=== PATIENT | female | born 1965 | race Caucasian/White ===

== ENCOUNTER 2019-04-16 18:43 | Inpatient (IN) | payer BC, OTHER ==
[2019-04-16] MEDS ORDERED: Ondansetron PF 4 MG/2 ML Vial ONE (19:12)
[2019-04-16 19:31] LABS: #Lymphocytes 1.2 thou/uL (1.20-3.40); #Monocytes 0.7 thou/uL (0.11-0.59); #Neutrophils 8.8 thou/uL (1.40-6.50); %Basophils 0.5 % (0.0-1.0); %Eosinophils 0.1 % (0.0-10.0); %Lymphocytes 11.4 % (21.0-51.0); %Monocytes 6.7 % (0.0-10.0); %Neutrophils 81.2 % (42.0-75.0); Hemoglobin 14.2 g/dL (12.0-16.0); Mean Corpuscular HGB CONC 34.3 g/dL (32.0-36.0); Mean Corpuscular Hemoglobin 31.3 pg (27.0-31.0); Mean Corpuscular Volume 91.2 fL (78.0-98.0); Mean Platelet Volume 6.7 fL (7.4-10.4); Platelet Count 177 thou/uL (130-400); RBC Distribution Width 14.3 % (11.5-14.5); Red Blood Cell (RBC) Count 4.54 mill/uL (4.20-5.40); White Blood Cell (WBC) Count 10.8 thou/uL (4.8-10.8)
[2019-04-16 19:39] LABS: INR-International Normal Ratio 1.1; Prothrombin Time 14.1 SEC (12.0-14.7)
[2019-04-16] MEDS ORDERED: Lorazepam 2 MG/ML VIAL ONE (19:39)
[2019-04-16 19:40] LABS: PTT 22.2 SEC (22.9-36.1)
[2019-04-16 19:50] LABS: ALT (SGPT) 78 U/L (8-55); AST (SGOT) 125 U/L (5-34); Albumin 4.2 g/dL (3.5-5.0); Alkaline Phosphatase 159 U/L (40-150); Anion Gap 25 mmol/L (10-20); BUN (Urea Nitrogen) 8 mg/dL (9.8-20.1); Bilirubin, Total 0.4 mg/dL (0.2-1.2); Calc. Creatinine Clearance 0 mL/min (70-130); Calcium 8.5 mg/dL (7.8-10.44); Carbon Dioxide 14 mmol/L (22-29); Chloride 103 mmol/L (98-107); Estimated GFR-MDRD 88; Globulin 3.3 g/dL (2.4-3.5); Lipase 21 U/L (8-78); Potassium 4.1 mmol/L (3.5-5.1); Protein, Total 7.5 g/dL (6.0-8.3); Sodium 138 mmol/L (136-145)
[2019-04-16 19:56] LABS: Glucose 54 mg/dL (70-105)
[2019-04-16] MEDS ORDERED: Dextrose 50% Abboject 50 ML SYRINGE ONE (20:06)
[2019-04-16 20:21] LABS: Bilirubin Negative (Negative); Blood, Urine Negative (Negative); Clarity Clear (Clear); Glucose, Urine (Dipstick) Normal (Negative); Leukocyte Negative Leu/uL (Negative); Nitrite Negative (Negative); Protein, Urine (Dipstick) 20 mg/dL (Neg-Trace); Urobilinogen Normal mg/dL (Less than 2)
[2019-04-16 20:31] LABS: Amphetamine Not Detected (NotDetected); Barbiturates Screen Detected (NotDetected); Benzodiazepine Screen Not Detected (NotDetected); Cocaine Metabolite Screen Not Detected (NotDetected); Medtox Control Line Valid? VALID (VALID); Medtox Reader # READER 4; Methadone Not Detected (NotDetected); Methamphetamine Not Detected (NotDetected); Opiate Screen Not Detected (NotDetected); Oxycodone Screen Not Detected (NotDetected); Phencyclidine (PCP) Not Detected (NotDetected); THC/Cannabinoid Screen Not Detected (NotDetected); Tricyclic Screen Not Detected (NotDetected)
[2019-04-16] MEDS ORDERED: Sodium Chloride 0.9% 1,000 ML IV SCH (20:45)
[2019-04-16] MEDS ORDERED: Lorazepam 2 MG/ML VIAL SLOW IVP PRN (20:46)
[2019-04-16] MEDS ORDERED: Ondansetron PF 4 MG/2 ML Vial IVP PRN (22:07)
[2019-04-16] MEDS ORDERED: Ondansetron ODT 4 MG TAB SL PRN (22:07)
[2019-04-16 22:33] VITALS: BMI 33.1
[2019-04-16] MEDS: Famotidine/PF 20 mg/2ml Vial SLOW IVP SCH (22:40)
[2019-04-16] MEDS: Dextrose 5 % And 0.9 % NaCl 1,000 ML IV SCH (22:42)
[2019-04-16] MEDS ORDERED: Acetaminophen 325 MG TAB PO PRN (23:18)
[2019-04-16] MEDS: levETIRAcetam In NaCl (Iso-Os) 1,000 MG in Premix Bag 1 BAG IVPB SCH (23:30)
--- NOTE | 2019-04-16 23:46 | PDOC.EVN ---
Event Note - Event Note Event Note: H&P dictated [id number]
[2019-04-17] MEDS ORDERED: Diazepam 5 MG TAB PO SCH (00:15)
[2019-04-17] MEDS ORDERED: Thiamine HCl 200 MG/2 ML VIAL IM SCH (00:15)
[2019-04-17] MEDS: Diazepam 5 MG TAB PO PRN ×3 (04:19→16:34)
--- NOTE | 2019-04-17 04:36 | HP ---
CHIEF COMPLAINT: Seizures. HISTORY OF PRESENT ILLNESS: Ms. Narvaez is a 54-year-old female with past medical history of seizures, asthma, and alcohol abuse, presented to the emergency room with chief complaint of seizures. The patient reports 4 episodes today. She reported intermittent jerking episodes for couple of weeks. She also reports that she has been taking her seizure medication including Keppra. She reports drinking/alcohol withdrawal since last few weeks. She said that her last drink was an hour ago. Workup in the emergency room, the patient was found to be hypoglycemic with a glucose of 54. She felt that she has not been eating or drinking lately. The patient appeared to be dehydrated. The patient is being admitted to the hospital for further management. PAST MEDICAL HISTORY: 1. Seizures. 2. Posttraumatic pain disorder. 3. Asthma. 4. Alcohol abuse. PAST SURGICAL HISTORY: 1. Bilateral knee surgery. 2. Bilateral shoulder surgery. 3. Endometrial ablation. 4. Appendectomy. 5. Cholecystectomy. SOCIAL HISTORY: She drinks every day, more than 10 drinks per day. She stated that she drinks a lot, at least 10 today. She has no history of cigarette smoking. ALLERGIES: PENICILLIN. HOME MEDICATIONS: Please see home medications reconciliation form for updated medications. FAMILY HISTORY: Reviewed and noncontributory. REVIEW OF SYSTEMS: Review of 14-systems negative today except what was mentioned in the history of present illness. PHYSICAL EXAMINATION: GENERAL: The patient is awake, alert, anxious, and restless. VITAL SIGNS: Blood pressure is 113/75, pulse is 99, temperature 98.2, pulse oximetry 100% on room air. HEAD AND NECK: Normocephalic and atraumatic. Neck is supple. CHEST: Fair. Bilateral air entry. HEART: S1 and S2 regular, tachycardic. ABDOMEN: Soft, mild diffuse tenderness, bowel sounds present. NEUROLOGIC: The patient is awake, alert, and oriented x3. PSYCHIATRIC: Anxious and restless. EXTREMITIES: No clubbing, no cyanosis. LABORATORY DATA: As mentioned above in the history of present illness. ASSESSMENT: 1. Alcohol withdrawal. 2. Dehydration. 3. Seizures. PLAN: 1. Admit. 2. IV fluid hydration. 3. Benzodiazepine as needed. 4. We will start the patient on IV Keppra, which she takes at home. 5. Seizure precautions. 6. Reconcile home medications. 7. Deep venous thrombosis prophylaxis, early ambulation/SCD. EXPECTED LENGTH OF STAY: At least one midnight, if the patient is stable. Job ID: [id number]
[2019-04-17] MEDS: Dextrose 5 % And 0.9 % NaCl 1,000 ML IV SCH ×4 (06:18→20:56)
[2019-04-17 06:28] LABS: Syphilis Antibody Nonreactive (Nonreactive); Syphilis Antibody Index 0.09 S/CO (<1.00 Non-Reactive)
[2019-04-17 06:29] LABS: ALT (SGPT) 53 U/L (8-55); AST (SGOT) 63 U/L (5-34); Albumin 3.6 g/dL (3.5-5.0); Alkaline Phosphatase 128 U/L (40-150); Anion Gap 14 mmol/L (10-20); BUN (Urea Nitrogen) 7 mg/dL (9.8-20.1); Bilirubin, Total 0.8 mg/dL (0.2-1.2); Calc. Creatinine Clearance 151 mL/min (70-130); Calcium 7.8 mg/dL (7.8-10.44); Carbon Dioxide 19 mmol/L (22-29); Chloride 107 mmol/L (98-107); Estimated GFR-MDRD 88; Globulin 2.6 g/dL (2.4-3.5); Glucose 83 mg/dL (70-105); Potassium 3.9 mmol/L (3.5-5.1); Protein, Total 6.2 g/dL (6.0-8.3); Sodium 136 mmol/L (136-145)
--- NOTE | 2019-04-17 08:45 | RAD ---
PORTABLE CHEST: DATE: 04/17/2019. PROVIDED CLINICAL HISTORY: ASE protocol. FINDINGS: Comparison 05/06/2015. Cardiac and mediastinal silhouette is within normal limits. Lungs appear mack r. No pleural fluid or pneumothorax apparent. IMPRESSION: No evidence for an acute cardiopulmonary process. POS: TPC
[2019-04-17] MEDS: Folic Acid 1 MG TAB PO SCH (08:51)
[2019-04-17] MEDS: Multivitamin W/ Minerals 1 TAB PO SCH (08:51)
[2019-04-17] MEDS: Famotidine/PF 20 mg/2ml Vial SLOW IVP SCH (08:51)
[2019-04-17] MEDS: levETIRAcetam In NaCl (Iso-Os) 1,000 MG in Premix Bag 1 BAG IVPB SCH (12:16)
--- NOTE | 2019-04-17 13:23 | PDOC.HOSPP ---
- Subjective Subjective: Seen and examined. Patient states she thinks shes still having seizures while sleeping. Tremulous, sweating, withdrawing from Etoh. States that she has been trying to "Wean down off Keppra because it makes her tired." States that she is consuming about 2 pints of vodka in a week, which is less for her. No other acute complaints at this time. - Objective Vital Signs & Weight: Vital Signs (12 hours) Temp BP 04/17/19 11:47 131/76 04/17/19 11:07 98.6 F 04/17/19 08:00 143/71 H 04/17/19 07:19 99.1 F 04/17/19 04:00 135/71 04/17/19 03:55 99.1 F Weight Weight 224 lb 7 oz Most Recent Monitor Data Heart Rate from ECG 77 NIBP 131/76 NIBP BP-Mean 94 Respiration from ECG 20 SpO2 98 I&O: 04/16/19 04/17/19 04/18/19 06:59 06:59 06:59 Intake Total 1095 Output Total 300 Balance 1095 -300 Result Diagrams: 04/16/19 19:19 04/17/19 05:32 Radiology Reviewed by me: Yes (Chest xray) Hospitalist ROS - Review of Systems All other systems reviewed; all pertinent +/- noted in HPI/Subj - Medication Medications: Active Medications Generic Name Dose Route Start Last Admin Trade Name Freq PRN Reason Stop Dose Admin Acetaminophen 650 mg 04/16/19 23:18 04/16/19 23:31 Tylenol PO 650 mg Q6H PRN Administration Headache/Fever or Pain Diazepam 10 mg 04/17/19 00:04 04/17/19 08:51 Valium PO 04/18/19 04:00 10 mg Q4H PRN Administration FOR ASE 10 OR GREATER Famotidine 20 mg 04/16/19 21:00 04/17/19 08:51 Pepcid SLOW IVP 20 mg Q12HR MELANIE Administration Folic Acid 1 mg 04/17/19 09:00 04/17/19 08:51 Folvite PO 1 mg DAILY MELANIE Administration Levetiracetam 1,000 mg/ Device 100 mls @ 200 mls/hr 04/16/19 21:00 04/17/19 12:16 IVPB 100 mls BID MELANIE Administration Dextrose/Sodium Chloride 1,000 mls @ 125 mls/hr 04/16/19 22:30 04/17/19 06:18 D5 0.9% Ns IV Not Given .Q8H MELANIE Iron/Minerals/Multivitamins 1 tab 04/17/19 09:00 04/17/19 08:51 Theragran M PO 1 tab DAILY MELANIE Administration - Exam General Appearance: ill appearing General - other findings: Tremulous Eye: anicteric sclera ENT: no oropharyngeal lesions, moist mucosa Neck: supple, symmetric, no lymphadenopathy Heart: no murmur, no gallops, no rubs Heart - other findings: Rapid regular rate Respiratory: CTAB, no wheezes, no rales, no ronchi, normal chest expansion Gastrointestinal: soft, non-tender, non-distended, normal bowel sounds, no guarding, no rigidity Extremities: no edema Skin: no lesions, no rashes Neurological: cranial nerve grossly intact, normal sensation to touch, no weakness Musculoskeletal: normal tone, normal strength Psychiatric: normal affect, A&O x 3 Hosp A/P (1) Alcohol withdrawal Code(s): F10.239 - ALCOHOL DEPENDENCE WITH WITHDRAWAL, UNSPECIFIED Status: Acute (2) Lactic acidosis Code(s): E87.2 - ACIDOSIS Status: Acute (3) Metabolic acidosis Code(s): E87.2 - ACIDOSIS Status: Acute (4) Seizure disorder Code(s): G40.909 - EPILEPSY, UNSP, NOT INTRACTABLE, WITHOUT STATUS EPILEPTICUS Status: Acute (5) Anemia Code(s): D64.9 - ANEMIA, UNSPECIFIED Status: Chronic (6) Anxiety and depression Code(s): F41.9 - ANXIETY DISORDER, UNSPECIFIED; F32.9 - MAJOR DEPRESSIVE DISORDER, SINGLE EPISODE, UNSPECIFIED Status: Chronic - Plan Plan: IMCU neurology consultation, recommendations appreciated continue antiepileptic drug start Librium scheduled continue Valium PRN alcohol withdrawal symptoms Ativan 2 mg PRN seizure seizure precautions trend lactic acid metabolic panel improving no abdominal pain or discomfort, clinical suspicion for pancreatitis is low at this time will continue to monitor patient may benefit from inpatient detoxification program if able replace electrolytes as needed G.I. and DVT prophylaxis
[2019-04-17] MEDS ORDERED: Lorazepam 2 MG/ML VIAL SLOW IVP PRN (15:50)
[2019-04-17] MEDS: levETIRAcetam 500 MG TAB PO SCH (20:45)
--- NOTE | 2019-04-17 22:37 | CON ---
DATE OF CONSULTATION: 04/17/2019 SERVICE: Pulmonary Medicine. REASON FOR CONSULTATION: IMCU patient. HISTORY OF PRESENT ILLNESS: The patient is a 54-year-old white female with past medical history significant for alcohol abuse. She typically drinks 1 to 2 pints of vodka on a daily basis. She made one pint last her entire day yesterday. Her last drink was yesterday. She finally decided that she would like to present to the hospital to facilitate withdrawal from this alcohol. She has had seizures before secondary to traumatic brain injury. She is not clear whether or not she has actually had withdrawal seizure. That being said, her seizure threshold is reduced. She is currently a little bit tremulous. Otherwise, she looks to be fairly cool, calm, and collected. She was initiated on a Librium taper. PAST MEDICAL HISTORY: 1. Seizure disorder. 2. History of traumatic brain injury. 3. Posttraumatic pain disorder. 4. Asthma. 5. Alcohol abuse. PAST SURGICAL HISTORY: 1. Knee surgery, bilateral. 2. Shoulder surgery, bilateral. 3. Endometrial ablation. 4. Appendectomy. 5. Cholecystectomy. SOCIAL HISTORY: She drinks on a daily basis. As previously noted, she frequently drinks up to two pints of vodka most days. She denies any current illicit drug use. Remotely, she did some marijuana. She denies any smoking history. She has no exposure to chemicals, dust, asbestos, or tuberculosis. FAMILY HISTORY: Noncontributory. ALLERGIES: PENICILLIN. MEDICATIONS: List of her inpatient medication was reviewed. No specific updates were made at this time. REVIEW OF SYSTEMS: General, head, ears, eyes, nose, throat, cardiovascular, respiratory, GI, , musculoskeletal, neurologic, and skin is negative except as mentioned is the HPI. PHYSICAL EXAMINATION: VITAL SIGNS: Afebrile, pulse 77, blood pressure 131/76, respirations 20, and saturation 98% on room air. GENERAL: The patient is awake and alert, in no apparent distress. LUNGS: Very good air entry without any prolonged expiratory phase, wheezing, rhonchi, or crackles. HEART: Normal rate, regular. ABDOMEN: Soft, nontender, nondistended. Bowel sounds are positive. MUSCULOSKELETAL: No cyanosis or clubbing. No pitting in bilateral lower extremities. NEUROLOGIC: Grossly nonfocal. LABORATORY DATA: WBC 10.8, hemoglobin 14.2, and platelets 177,000. INR 1.1. Basic metabolic profile is essentially unremarkable. Lactate is downtrending to 1.0. Liver function studies are otherwise unremarkable. Bilirubin is normal. Urinalysis is negative, barbiturates are positive on urine drug screen as well as plasma alcohol which was 250. Syphilis IgG and IgM are both nonreactive. IMAGING: Chest x-ray demonstrates no acute cardiopulmonary abnormality. ASSESSMENT: 1. Alcohol abuse, wishing to go through withdrawal. 2. Seizure disorder secondary to traumatic brain injury. 3. Possible history of withdrawal seizures. DISCUSSION AND PLAN: She has already been initiated on a benzodiazepine taper. At this point, she looks fairly cool, calm, and collected. We will follow her ASE through time. If there is a significant rise, I will be notified. She is tolerating p.o. for the most part, so IV fluids will be dropped to 50 mL/h. Pulmonary/Critical Care will follow along in this location. 70 minutes have been devoted to this patient in various activities. I personally reviewed all imaging studies and laboratory data noted within this document. For fifty percent of this time, I was interacting with the patient at the bedside or coordinating care with the care team. For the remainder of the time I was immediately available to the patient in the hospital unit. Job ID: [id number] MTDD
[2019-04-18] MEDS: Diazepam 5 MG TAB PO PRN ×2 (00:14→14:13)
[2019-04-18] MEDS ORDERED: Diazepam 5 MG TAB PO PRN ×2 (04:00→14:06)
[2019-04-18 06:37] LABS: Anion Gap 12 mmol/L (10-20); BUN (Urea Nitrogen) Less than 4 mg/dL (9.8-20.1); Calc. Creatinine Clearance 173 mL/min (70-130); Calcium 8.5 mg/dL (7.8-10.44); Carbon Dioxide 21 mmol/L (22-29); Chloride 109 mmol/L (98-107); Estimated GFR-MDRD Greater than 90; Glucose 101 mg/dL (70-105); Potassium 3.3 mmol/L (3.5-5.1); Sodium 139 mmol/L (136-145)
[2019-04-18 06:39] LABS: Phosphorus 1.8 mg/dL (2.3-4.7)
[2019-04-18 07:19] LABS: Phosphorus 1.4 mg/dL (2.3-4.7)
[2019-04-18 07:50] LABS: Hemoglobin 13.1 g/dL (12.0-16.0); Mean Corpuscular HGB CONC 34.4 g/dL (32.0-36.0); Mean Corpuscular Hemoglobin 31.4 pg (27.0-31.0); Mean Corpuscular Volume 91.5 fL (78.0-98.0); Mean Platelet Volume 7.6 fL (7.4-10.4); Platelet Count 89 thou/uL (130-400); RBC Distribution Width 14.5 % (11.5-14.5); Red Blood Cell (RBC) Count 4.17 mill/uL (4.20-5.40); White Blood Cell (WBC) Count 4.1 thou/uL (4.8-10.8)
[2019-04-18] MEDS: PHOS-NAK 1 PKT PACK PO SCH ×3 (09:02→22:45)
[2019-04-18] MEDS: Folic Acid 1 MG TAB PO SCH (09:03)
[2019-04-18] MEDS: Magnesium Oxide 400 MG TAB PO SCH (09:03)
[2019-04-18] MEDS: Multivitamin W/ Minerals 1 TAB PO SCH (09:03)
[2019-04-18] MEDS: levETIRAcetam 500 MG TAB PO SCH (09:03)
[2019-04-18] MEDS: Thiamine 100 MG TAB PO SCH (09:04)
--- NOTE | 2019-04-18 11:13 | CON ---
DATE OF TELEMEDICINE CONSULTATION: 04/18/2019 NURSE: Kirsten CHIEF COMPLAINT: Seizures. HISTORY OF PRESENT ILLNESS: The patient comes in with a history of seizure disorder. She reports she has been having seizures since her traumatic brain injury in 2016. She used to see Dr. Ventura, now she sees Tiff at Dr. Constantino office. Her last set of seizures was 6 months ago, these are not very frequent. She has nighttime seizures as well. She was on Keppra 750 mg twice daily. Her dosage was decreased to 500 mg twice daily 4 months ago. She is also on Vimpat 150 mg p.o. b.i.d. Keppra makes her sleepy even at 500 mg b.i.d. She would like me to switch it while she is here. She has alcohol withdrawal seizures in combination with her generalized tonic-clonic seizure. She binge drinks alcohol. She could not withdraw from or stop alcohol and she comes in with 4 episodes of seizure. She does not have a psychiatrist, but is willing to see a psychiatrist now. PREVIOUS MEDICAL HISTORY: 1. Seizures. 2. Posttraumatic disorder. 3. Asthma. 4. Alcohol abuse. 5. Traumatic brain injury in 2016. PAST SURGICAL HISTORY: 1. Bilateral knee surgery. 2. Bilateral shoulder surgery. 3. Endometrial ablation. 4. Appendectomy. 5. Cholecystectomy. SOCIAL HISTORY: She drinks more than 10 drinks per day when she is bingeing and then she takes a break. ALLERGIES: SHE IS ALLERGIC TO PENICILLIN. MEDICATIONS: She takes Vimpat plus Keppra for her seizures. FAMILY HISTORY: Mother has depression. There is no one with seizures in her family. LABORATORY REPORTS: White count 4.1, hemoglobin 13.1, hematocrit 38.1, and platelets 89. Chemistry; sodium 139, potassium 3.3, chloride 109, bicarb 21, BUN less than 4, and creatinine 0.62. Urine toxicology positive for barbiturates and alcohol level of 250. IMAGING STUDIES: She did not have any imaging studies recently, but she did have an MRI 2 years ago. REVIEW OF SYSTEMS: PULMONARY: Negative for any shortness of breath or cough. GI: Negative for nausea, vomiting, or diarrhea. PSYCHIATRIC: Negative for any depression or anxiety. DERMATOLOGIC: Negative for any skin rash or itching. NEUROLOGIC: Positive for seizures and side effects from Keppra. HEMATOLOGIC: Negative for bleeding diathesis. PHYSICAL EXAMINATION: VITAL SIGNS: Blood pressure 152/84, temperature 98.2, and her pulse rate is 86. CHEST: Clear vesicular breathing. CARDIOVASCULAR: S1 and S2 heard. No murmurs. ABDOMEN: Soft and nontender. No organomegaly noted. NEUROLOGIC: Higher intellectual functions normal. Orientation to time, place, and person. She looks slightly scared or anxious. Cranial nerves; normal extraocular movements, no facial asymmetry, normal sensation of face bilaterally, and normal hearing bilaterally to finger rub and tongue midline, no atrophy noted. Motor; bulk normal, tone normal, strength 5/5 in both upper and lower extremities in iliopsoas, hamstrings, quadriceps, ankle dorsiflexion, plantar flexion, deltoid, biceps, triceps, wrist extension and flexion, finger extension and flexion bilaterally. Sensory; normal to touch bilaterally. Normal cerebellar pyhecn-la-pcpi and snrp-ra-thvs. IMPRESSION: The patient is a 54-year-old lady with alcohol withdrawals plus seizure disorder. She wanted me to switch her from Keppra because she is feeling sleepy and she would not like to do that at home. Her neurological examination is normal at this time. RECOMMENDATIONS: I stopped Keppra and we will start her on Depakote 500 mg b.i.d. Monitor her for seizures while she is here. If needed, we can increase her dose of Vimpat to 200 mg b.i.d. Please allow the patient to take her home dose of Vimpat. I will check if the pharmacy can provide it while she is here. I will also request MRI of the brain to make sure we do not have any structural abnormalities and she has not had a scan in 2 years. I will follow up with you tomorrow. Job ID: [id number] [facility]
--- NOTE | 2019-04-18 13:12 | MRI ---
MRI BRAIN WITHOUT CONTRAST: Date 04/18/19 INDICATION: Seizure. Comparison made to MRI brain dated 01/08/17. FINDINGS: There is scattered white matter hyperintensity seen on FLAIR sequence, slightly more prominent in the frontal lobes. These are seen in the periventricular region of the frontal lobes with scattered subc ortical white matter hyperintensities. These appear stable when compared to the 2017 exam. No mass or edema. No evidence of restricted diffusion. No evidence of interval change. IMPRESSION: Nonspecific white matter hyperintensities again seen on FLAIR sequence. These are stable in number an d appearance when compared to the prior exam of 2017. No acute process or interval change. POS: OFF
--- NOTE | 2019-04-18 14:09 | PDOC.HOSPP ---
- Subjective Encounter Date: 04/18/19 Encounter Time: 14:08 Subjective: 55 y/o female with chronic alcohol abuse and seizure disorder admitted with recurrent seizures after stopping alcohol. she desires to quit. denied chest pain, fever or dysuria. no seizure since admision. - Objective Vital Signs & Weight: Vital Signs (12 hours) Temp BP Pulse Ox 04/18/19 10:44 97.9 F 04/18/19 08:00 97 04/18/19 07:50 152/84 H 04/18/19 07:05 98.2 F 04/18/19 04:00 98.6 F Weight Admit Weight 224 lb 7 oz Weight 228 lb Most Recent Monitor Data Heart Rate from ECG 86 NIBP 155/102 NIBP BP-Mean 119 Respiration from ECG 17 SpO2 98 I&O: 04/17/19 04/18/19 04/19/19 06:59 06:59 06:59 Intake Total 1095 2608 Output Total 2650 Balance 1095 -42 Result Diagrams: 04/18/19 06:26 04/18/19 06:06 Hospitalist ROS - Medication Medications: Active Medications Generic Name Dose Route Start Last Admin Trade Name Freq PRN Reason Stop Dose Admin Acetaminophen 650 mg 04/16/19 23:18 04/16/19 23:31 Tylenol PO 650 mg Q6H PRN Administration Headache/Fever or Pain Chlordiazepoxide HCl 10 mg 04/17/19 15:00 04/18/19 09:03 Librium PO 10 mg TID MELANIE Administration Diazepam 10 mg 04/17/19 13:27 04/18/19 00:14 Valium PO 10 mg Q6H PRN Administration Alcohol Withdrawal Folic Acid 1 mg 04/17/19 09:00 04/18/19 09:03 Folvite PO 1 mg DAILY MELANIE Administration Dextrose/Sodium Chloride 1,000 mls @ 50 mls/hr 04/17/19 15:50 04/17/19 20:56 D5 0.9% Ns IV 1,000 mls .Q20H MELANIE Administration Iron/Minerals/Multivitamins 1 tab 04/17/19 09:00 04/18/19 09:03 Theragran M PO 1 tab DAILY MELANIE Administration Levetiracetam 1,000 mg 04/17/19 21:00 04/18/19 09:03 Keppra PO 1,000 mg BID MELANIE Administration Magnesium Oxide 400 mg 04/18/19 09:00 04/18/19 09:03 Magnesium Oxide PO 400 mg DAILY MELANIE Administration Miscellaneous Medication 1 pkt 04/18/19 09:00 04/18/19 09:02 Phos-Nak PO 04/18/19 21:01 1 pkt TID MELANIE Administration Thiamine HCl 100 mg 04/18/19 09:00 04/18/19 09:04 Thiamine PO 100 mg DAILY MELANIE Administration - Exam General Appearance: awake alert Eye: anicteric sclera ENT: normocephalic atraumatic, moist mucosa Neck: supple, symmetric, no JVD Heart: RRR Respiratory: CTAB, no wheezes, no rales, no ronchi, normal chest expansion Gastrointestinal: soft, non-tender, non-distended, normal bowel sounds Extremities: no cyanosis, no edema Neurological: cranial nerve grossly intact, no focal deficits Neurological - other findings: tremor noted Psychiatric: normal affect, A&O x 3 Hosp A/P (1) Recurrent seizures Code(s): G40.909 - EPILEPSY, UNSP, NOT INTRACTABLE, WITHOUT STATUS EPILEPTICUS Status: Acute (2) Alcohol withdrawal Code(s): F10.239 - ALCOHOL DEPENDENCE WITH WITHDRAWAL, UNSPECIFIED Status: Acute (3) Seizure disorder Code(s): G40.909 - EPILEPSY, UNSP, NOT INTRACTABLE, WITHOUT STATUS EPILEPTICUS Status: Acute (4) Anxiety and depression Code(s): F41.9 - ANXIETY DISORDER, UNSPECIFIED; F32.9 - MAJOR DEPRESSIVE DISORDER, SINGLE EPISODE, UNSPECIFIED Status: Chronic (5) Hypokalemia Code(s): E87.6 - HYPOKALEMIA Status: Acute (6) Hypophosphatemia Code(s): E83.39 - OTHER DISORDERS OF PHOSPHORUS METABOLISM Status: Acute (7) Lactic acidosis Code(s): E87.2 - ACIDOSIS Status: Acute (8) Metabolic acidosis Code(s): E87.2 - ACIDOSIS Status: Acute - Plan Replete serum potassium and phosphate. Restart cymbalta and vimpat. Continue benzodiazepines. repeat renal function panel and magn in the am. transfer to Neuro floor. DVT prophtlaxis addressed
[2019-04-18] MEDS ORDERED: Enoxaparin Sodium 40 MG/0.4 ML SYRINGE SC SCH (14:15)
[2019-04-18] MEDS ORDERED: Potassium Phosphate 30 MMOL in Sodium Chloride 0.9% 500 ML IVPB SCH (14:15)
[2019-04-18] MEDS ORDERED: Potassium Chloride 20 MEQ TAB PO SCH (15:00)
--- NOTE | 2019-04-18 15:36 | EKG ---
Test Reason : SEIZURE Blood Pressure : / mmHG Vent. Rate : 100 BPM Atrial Rate : 100 BPM P-R Int : 150 ms QRS Dur : 070 ms QT Int : 374 ms P-R-T Axes : 026 052 031 degrees QTc Int : 482 ms Normal sinus rhythm Prolonged QT Abnormal ECG Confirmed by ALEX CARTER ([id number]), desk editor TIMOTHY BATEMAN ([id number]) on 04/18/2019 3:36:14 PM Referred By: EMMA Confirmed By:ALEX CARTER
--- NOTE | 2019-04-18 15:50 | PRG ---
DATE OF SERVICE: 04/18/2019 SERVICE: Pulmonary Medicine. INTERVAL HISTORY: The patient is doing fine from respiratory standpoint. Denies any current chest discomfort, nausea, vomiting, fevers, or chills. She is breathing comfortably. She is a little tremulous, but otherwise, she is not having any significant symptoms. PHYSICAL EXAMINATION: VITAL SIGNS: Afebrile, pulse 78, blood pressure 139/82, respirations 16, saturation 95%, currently on room air. GENERAL: The patient is awake and alert, in no apparent distress. LUNGS: Wonderful air entry with no prolonged expiratory phase, wheezing, crackles, or rhonchi. HEART: Normal rate and regular. ABDOMEN: Soft, nontender, nondistended. Bowel sounds are positive. MUSCULOSKELETAL: No cyanosis or clubbing. No pitting in the bilateral lower extremities. NEUROLOGIC: Grossly nonfocal. She demonstrates a coarse tremor when you ask to see her hands, but has no tremor otherwise. LABORATORY DATA: WBC 4.1, hemoglobin 13.1, platelets 89. INR 1.1. Potassium 3.3. Otherwise, basic metabolic profile is unremarkable. Phosphorus 1.4. Urinalysis is unremarkable. Syphilis is negative. IMAGING STUDIES: MRI of the brain demonstrates nonspecific white matter hyperintensities, again seen on FLAIR sequence. These are stable and chronic since 2017. No interval change. ASSESSMENT: 1. Alcohol abuse, wishing to abstain from alcohol permanently. 2. Seizure disorder secondary to traumatic brain injury. 3. History of withdrawal seizures. DISCUSSION AND PLAN: At this point, she is stable for transition out of the ICU to the medical unit. She has no further requirements for inpatient Pulmonary or Critical Care opinion unless her condition deteriorates. She is already on a benzodiazepine taper. I will replace the potassium and phosphorus today. Repeat levels will be obtained tomorrow morning. Job ID: [id number]
[2019-04-18] MEDS ORDERED: Valproate Sodium 500 MG in Sodium Chloride 0.9% 100 ML IVPB SCH (21:00)
[2019-04-18] MEDS: Lacosamide 50 mg Tablet PO SCH (21:20)
[2019-04-18] MEDS: Valproate Sodium 500 MG in Sodium Chloride 0.9% 100 ML IVPB SCH (22:45)
[2019-04-19 05:36] LABS: Anion Gap 9 mmol/L (10-20); BUN (Urea Nitrogen) 4 mg/dL (9.8-20.1); Calc. Creatinine Clearance 179 mL/min (70-130); Calcium 8.3 mg/dL (7.8-10.44); Carbon Dioxide 26 mmol/L (22-29); Chloride 108 mmol/L (98-107); Estimated GFR-MDRD Greater than 90; Glucose 91 mg/dL (70-105); Potassium 3.3 mmol/L (3.5-5.1); Sodium 140 mmol/L (136-145)
[2019-04-19 05:45] LABS: Magnesium 1.8 mg/dL (1.6-2.6); Phosphorus 3.6 mg/dL (2.3-4.7)
[2019-04-19] MEDS: Valproate Sodium 500 MG in Sodium Chloride 0.9% 100 ML IVPB SCH (08:59)
[2019-04-19] MEDS ORDERED: Citalopram 20 MG TAB PO SCH (09:00)
[2019-04-19] MEDS ORDERED: Enoxaparin Sodium 40 MG/0.4 ML SYRINGE SC SCH (09:00)
[2019-04-19] MEDS ORDERED: Multivit, Therapeutic 1 TAB PO SCH (09:00)
[2019-04-19] MEDS: Multivitamin W/ Minerals 1 TAB PO SCH (09:01)
[2019-04-19] MEDS: Potassium Chloride 20 MEQ TAB PO SCH ×2 (09:01→13:53)
[2019-04-19] MEDS: Lacosamide 50 mg Tablet PO SCH (09:02)
[2019-04-19] MEDS: Magnesium Oxide 400 MG TAB PO SCH (09:03)
[2019-04-19] MEDS: Folic Acid 1 MG TAB PO SCH (09:03)
[2019-04-19] MEDS: Thiamine 100 MG TAB PO SCH (09:03)
--- NOTE | 2019-04-19 10:41 | CON ---
DATE OF TELEMEDICINE CONSULTATION WITH OLIVERIO MARTÍNEZ: 04/19/2019 INTERVAL HISTORY: The patient is doing much better today and she is preparing to go home. No new symptoms are reported. She says she is unable to decide if Depakote is less sedating because she is also on Librium at this time. She is considering seeing a psychiatrist for alcohol symptoms. LABORATORY WORKUP: No new labs today, other than sodium 140, potassium 3.3, chloride 108, bicarb 26, BUN 4, creatinine 0.6. PHYSICAL EXAMINATION: VITAL SIGNS: Blood pressure 144/90, temperature 97.9, pulse 84. GENERAL APPEARANCE: Well-built, well-nourished lady, who seems to be comfortable. NEUROLOGIC: Higher intellectual functions normal. Orientation to time, place, and person. Appropriate conversation. Cranial nerves, normal extraocular movements. Tongue midline. No atrophy noted. Motor examination, strength 5/5 throughout. Involuntary movement. She had very fine 1+ action tremor bilaterally in upper extremities. IMPRESSION: The patient with a history of seizure disorder plus alcohol withdrawal. At this time, she wanted me to change her to some other agent other than Keppra , which was making her sleepy. I started her on Depakote yesterday and she seems to be stable at this time. RECOMMENDATION: She can follow up with Dr. Constantino and see if they can adjust her Depakote further, and she also will consult psychiatrist with help from Dr. Constantino. Job ID: [id number] MTDD
--- NOTE | 2019-04-19 10:46 | PDOC.EVN ---
Event Note - Event Note Event Note: Discharged. #[id number]
--- NOTE | 2019-04-19 11:20 | DIS ---
DATE OF ADMISSION: 04/16/2019 DATE OF DISCHARGE: 04/19/2019 PRIMARY CARE PHYSICIAN: . DISCHARGE DIAGNOSES: 1. Chronic alcohol abuse with withdrawal symptoms. 2. Recurrent seizures. 3. Seizure disorder. 4. Anxiety and depression. 5. Hypokalemia. 6. Hypophosphatemia. 7. Lactic acidosis. 8. Metabolic acidosis. 9. Dehydration. CONSULTATIONS: 1. Pulmonary and Critical Care. 2. Neurology. HOSPITAL COURSE: A 54-year-old female with chronic alcohol abuse and seizure disorder, admitted with recurrent seizures after stopping alcohol. The patient desires to quit. She was treated with benzodiazepine according to [facility] protocol while antiepileptics were continued with improvement. The patient had no seizures during this hospitalization. Neurology saw the patient and adjusted antiepileptics. Keppra was discontinued and Depakote was started as patient reported that Keppra makes her feel somnolent. The patient also had electrolyte derangement, which we have corrected appropriately. She remained stable and was subsequently discharged home to commence outpatient alcohol therapy. PHYSICAL EXAMINATION: VITAL SIGNS: Temperature 97.9, pulse 84, respiratory rate 14, SpO2 98% on room air, and blood pressure 144/90. GENERAL: Healthy-looking, middle-aged female, in no obvious distress. Afebrile. Anicteric. Acyanotic. HEENT: Normocephalic and atraumatic. Oral mucosa is moist. CARDIOVASCULAR: Regular rhythm and rate with normal heart sounds, one and two. RESPIRATORY: Good air entry bilaterally with no obvious crackle or rhonchi or use of accessory muscles. GI: Full, soft, nontender, and nondistended with normal bowel sounds. EXTREMITIES: Grossly normal looking, atraumatic with no edema or erythema. COACH OPERATOR: Conscious, alert and oriented x3 with appropriate mental status. Cranial nerves II through XII are grossly intact. No obvious tremor was appreciated. PSYCHIATRIC: Appropriate, cooperative with good insight. DISCHARGE DISPOSITION: Home. DISCHARGE CONDITION: Improved. DISCHARGE MEDICATIONS: Please see discharge med rec. FOLLOWUP: Follow up with PCP in 3 to 5 days. This discharge took more than 32 minutes. Job ID: [id number]
[2019-04-19 12:31] VITALS: BP 142/97
[2019-04-19 12:43] VITALS: TEMP 98.2
== END 2019-04-19 15:25 | disposition home or self-care (01) | DRG 897 ==
LOC: ERS 18:43 → IMCU/EMU 20:15 → 2SE 04-18 16:47
PROVIDERS: ADMIT Internal Medicine; ATTEND Internal Medicine
DX: F10.239 Alcohol dependence with withdrawal, unspecified (principal); E87.2 Acidosis; G40.909 Epilepsy, unspecified, not intractable, without status epilepticus; E86.0 Dehydration; F32.9 Major depressive disorder, single episode, unspecified; J45.909 Unspecified asthma, uncomplicated; D64.9 Anemia, unspecified; F41.9 Anxiety disorder, unspecified; E87.6 Hypokalemia; E83.39 Other disorders of phosphorus metabolism; E16.2 Hypoglycemia, unspecified; Z87.820 Personal history of traumatic brain injury; Z90.49 Acquired absence of other specified parts of digestive tract; Z88.0 Allergy status to penicillin
CPT/HCPCS: 36415; 70551; 71045; 80048; 80053; 80306; 80307; 81003; 82248; 83605; 83690; 83735; 84100; 84146; 85025; 85027; 85610; 85730; 86780; 93005; 96361; 96374; 96375; J1650; J1953; J2060; J2405; J3411; J3475; J3490; J7050; S0028

== ENCOUNTER 2020-05-25 23:28 | Observation (INO) | payer BC ==
[2020-05-26 00:42] VITALS: BMI 34.0
--- NOTE | 2020-05-26 00:54 | PDOC.FPRHP ---
- History of Present Illness Chief Complaint: Chest pain History of Present Illness: Patient is a 55 year old female with a history of alcohol abuse and seizure disorder who presented to the [facility] ED in [place] with complaints of right sided chest pain for 4 days, now resolved and left sided chest pain for 1 day. The patient denies activity with onset of pain. She describes the pain as sharp, stabbing and constant. She reports SOB and headache but denies vision changes, nausea, sweating and abdominal pain. She denies a history of similar symptoms in the past. No recent travel, surgery or hormone therapy. Reports last ETOH drink was 1 pint of vodka 2 days ago. Notes a history of binge drinking reported as 1 pint of vodka daily for 1 week at a time followed by withdrawal shaking. Denies palpitations, visual/auditory/tactile hallucinations and nightmares. ED Course: In [place] ED, received morphine 6mg, lorazepam 1mg, tylenol 650mg, phenergan 6.25 followed by 12.5mg, 1 L NS. Given enoxaparin 1mg/kg due to concern about pulmonary embolism. CT Chest completed and was negative for PE, although noted that exam was limited due to contrast timing. 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 denies: cough, congestion Cardiovascular: reports: chest pain. denies: palpitation, edema Gastrointestinal: reports: nausea. denies: vomiting, diarrhea, constipation, abdominal pain Genitourinary: denies: dysuria, polyuria Skin: denies: rashes, jaundice Musculoskeletal: denies: pain, tenderness Neurological: denies: numbness, syncope, seizure, weakness Psychological: denies: anxiety, depression - Vital signs BP: [126/62] HR: [103] RR: [20] Tmax: [98.3F] Pox: [99]% on [RA] Wt: [104.5kg] - Physical Exam Constitutional: NAD, awake, alert and oriented HEENT: normocephalic and atraumatic, conjunctiva clear, MMM Neck: FROM, trachea midline Chest: no-tender to palpation, no lesions Heart: RRR, normal S1/S2, no murmurs/rubs/gallops, pulses present, no edema Lungs: CTAB, no respiratory distress, good air movement Abdomen: soft, non-tender, bowel sounds present Musculoskeletal: normal structure, ROM grossly normal Neurological: no focal deficit, CN II-XII intact -Neurological: Resting tremor present, A&O x 4 Skin: no rash/lesions, no jaundice Heme/Lymphatic: no unusual bruising or bleeding Psychiatric: normal mood and affect FMR H&P: Results - EKG Interpretation EKG: Sinus tachycardia, no ST segment changes FMR H&P: A/P - Plan Atypical chest pain Cause musculoskeletal vs. GERD. Pericarditis is a differential but unlikely given EKG showed sinus tachy, no ST segment changes. BNP < 10. TSH negative. HEART score: 2. D-dimer elevated at 0.75, however CTA Chest negative for PE, lovenox administered in ED. Negative bilateral LE US -Trop trended < 0.01 -> 0.01 -> 0.013. -Stress test in am to complete work up -Lipid panel, A1C for risk stratification -Monitor overnight on tele -Tums Q4H PRN for heartburn Alcohol withdrawal Last drink 2 days ago, 1 pint of vodka. Resting tremors on exam. -ASE protocol -Ativan 1mg Q4H PRN -Alcohol cessation encouraged Hypokalemia K 3.3 in the ED. -Monitor with am BMP -Supplement as needed Seziure disorder 2/2 TBI -Continue home medication Anxiety Depression -Stable without medication Hiatal Hernia -Noted on CTA Chest PCP: Dr. Elizabeth ([facility] physician) Code: FULL DVT PPx: Lovenox 40 Dispo: Admit to tele obs for ACS r/o and alcohol withdrawal FMR H&P: Upper Level - Plan Date/Time: 05/26/20 0054 ITiffanie, have evaluated this patient and agree with findings/plan as outlined by science intern resident. Pertinent changes/additions are listed here. 55 yo F presents with CP and SOB x3 days. Pain is right sided, stabbing, continues. SOB began this morning. No fever, chills, abdominal pain, cough, dysuria. No recent surgeries or immobility. Hx seizures, last one 2 months ago. Reports compliance with medication- keppra, vimpat, topamax Hx alcohol abuse: last drink 2 days ago. She often binge drinks, 1 pint vodka daily. Will have tremor and anxiety when she withdraws at home. In ED given morphine, ativan, tylenol, lovenox 1mg/kg, phenergan x2, 1L, zofran, morphine, aspirin PE: Gen: NAD, tremors HEENT: Moist MM, no LAD Heart: RRR, no murmurs Lungs: CTAB, no wheezing. No increased work of breathing Abd: soft, nontender, BS+, no masses or hernias Ext: no cyanosis or edema Psych: AOx3 Alcohol Withdrawal - ASE protocol - Last drink 2 days ago - Ativan prn for now, will add long acting benzo as well if needed Atypical chest pain - Trop neg x3 - EKG without acute ST changes - TSH 0.99, further risk stratification labs A1c, lipids, with am labs - Family hx father with LA age <50 - Heart score 2, considered low risk but will order stress test in am to complete workup - Ddx includes MSK strain vs pericarditis (though no EKG changes associated with this), GERD (could try Gi cocktail/PPI if pain persists in am). Pain is not reproducible to palpation. Elevated D-dimer - Dimer 0.75, with CTA neg for central PE though poor study and unable to rule out peripheral thrombus. s/p 1 dose therapeutic lovenox in ED. Will not continue at this time. Bilateral LE dopplers negative. Tachycardia more likely 2/2 al cohol withdrawal Admitting Attending: PCP: Ann Franco Dispo: admit to telemetry for observation
[2020-05-26] MEDS ORDERED: Calcium Carbonate 500 MG ChewTAB PO PRN (01:16)
[2020-05-26] MEDS ORDERED: Ondansetron ODT 4 MG TAB PO PRN (01:16)
[2020-05-26] MEDS ORDERED: Acetaminophen 325 MG TAB PO PRN (01:16)
[2020-05-26] MEDS: Ondansetron PF 4 MG/2 ML Vial IVP PRN ×3 (02:13→15:42)
[2020-05-26] MEDS: Lorazepam 2 MG/ML VIAL SLOW IVP PRN ×3 (02:14→15:42)
[2020-05-26 05:31] LABS: Hemoglobin A1c 4.8 % (4.0-6.0)
[2020-05-26 05:57] LABS: Cardiac Risk 2.3 (Less than 4.5)
[2020-05-26] MEDS ORDERED: FLU VACC QS2020-21(6MOS UP)/PF 60 MCG/0.5 ML SYRINGE IM ONE (09:00)
[2020-05-26] MEDS ORDERED: Lacosamide 50 mg Tablet PO SCH (09:00)
[2020-05-26] MEDS ORDERED: levETIRAcetam 500 MG TAB PO SCH (09:00)
[2020-05-26] MEDS ORDERED: Topiramate 25 MG TAB PO SCH (09:00)
[2020-05-26] MEDS ORDERED: Enoxaparin Sodium 40 MG/0.4 ML SYRINGE SC SCH (09:00)
--- NOTE | 2020-05-26 15:48 | NM ---
Radionucleotide stress only myocardial perfusion scan with CT attenuation correction and SPECT imagin g Left ventricular wall motion evaluation and ejection fraction HISTORY: Chest pain. FINDINGS: Lexiscan protocol. There is homogeneous uptake of radiotracer throughout the left ventricul ar myocardium. No focal perfusion defect. QGS analysis of gated SPECT images shows no focal wall motion abnormalities. Ejection fraction calcul ated at 74%. IMPRESSION : No evidence of ischemia. Normal LVEF.
[2020-05-26 16:29] VITALS: BP 140/68; TEMP 98
[2020-05-26] MEDS ORDERED: Potassium Chloride 20 MEQ TAB PO SCH (18:15)
--- NOTE | 2020-05-26 19:50 | DIS ---
DATE OF ADMISSION: 05/26/2020 DATE OF DISCHARGE: 05/26/2020 DISCHARGE DISPOSITION AND FOLLOWUP: Patient discharged home. Patient was seen and examined on day of discharge. Denies any new complaints. INPATIENT CONSULTS: None. BRIEF CLINICAL COURSE: The patient is a 55-year-old female with past medical history significant for alcohol abuse, seizures post traumatic brain injury. She presented to the ER in [place] for right-sided chest pain that lasted for a couple seconds when she had it. She had a CTA chest and thorax, which did not show any pulmonary embolism. She also had a venogram done which did not show any DVTs. She was initially admitted under the resident's service when she was transferred over from [place] and it was discovered that her primary care physician is under the hospitalist services, so her care was transferred over to us. She remained chest pain-free while in the ER and had a stress test, which resulted with no evidence of ischemia and normal LVEF. Her ejection fraction was calculated at 74%. While in the hospital, her potassium was 3.3, so she did receive a dose of supplemental potassium before discharge. Her troponins x3 were all negative. The patient states that she is attending a rehab center next week for her alcohol use. She states she has been alcohol free for two months. She did ask for a Librium refill prior to discharge but we let her know she would need to follow up with her PCP for this. I encouraged her to call her PCP upon discharge. FINAL DIAGNOSES: Chest pain, seizure disorder, history of alcoholism, mild hypokalemia. DISCHARGE MEDICATIONS: Continue her home medications; 1. Keppra 1000 mg b.i.d. 2. Vimpat 150 mg b.i.d. 3. Topamax 25 mg. DISCHARGE INSTRUCTIONS: The patient was encouraged to follow up with her primary care physician as early as tomorrow if she is able to or Saturday. The patient was also encouraged to attend the rehab facility where she is set to go to next week. She is to continue taking her medications. She was encouraged to follow up for emergency care if she does experience chest pain again in the future. Patient was discussed and reviewed with Dr. Bah prior to discharge. Total time coordinating discharging this patient was 25 minutes. Job ID: [id number] [facility]
== END 2020-05-26 19:40 | disposition home or self-care (01) ==
LOC: 2NO 05-26 00:26
PROVIDERS: ADMIT Emergency Medicine; ATTEND Emergency Medicine
DX: R07.89 Other chest pain (principal); G40.909 Epilepsy, unspecified, not intractable, without status epilepticus; F10.239 Alcohol dependence with withdrawal, unspecified; E87.6 Hypokalemia; F41.9 Anxiety disorder, unspecified; F32.9 Major depressive disorder, single episode, unspecified; K44.9 Diaphragmatic hernia without obstruction or gangrene; R79.1 Abnormal coagulation profile; Z87.820 Personal history of traumatic brain injury; Z79.899 Other long term (current) drug therapy; Z88.0 Allergy status to penicillin; Z91.013 Allergy to seafood
CPT/HCPCS: 36415; 78452; 80061; 83036; 90471; 90662; 93017; 96372; 96374; 96375; 96376; A9500; G0008; G0378; J1650; J2060; J2405

== ENCOUNTER 2020-07-29 19:55 | Emergency (ER) | payer BC ==
[2020-07-29] MEDS ORDERED: Lorazepam 2 MG/ML VIAL ONE (20:42)
--- NOTE | 2020-07-29 20:57 | RAD ---
RADIOGRAPH CHEST 1 VIEW: DATE: 07/29/2020 HISTORY: 55-year-old female with altered mental status and abnormal breathing. Concern for aspiration. FINDINGS: The visualized lung huang are clear. The cardiomediastinal silhouette and hilar shadows are normal. The lateral costophrenic angles are sharp. There is no pneumothorax. IMPRESSION: Negative.
--- NOTE | 2020-07-29 21:07 | CT ---
CT BRAIN NONCONTRAST: DATE: 07/29/2020 HISTORY: 55-year-old female with altered mental status FINDINGS: There is no evidence of acute intra-axial or extra-axial hemorrhage. There is no midline shift or any other mass effect. There is no extra-axial fluid collection. There is no evidence of obstructive hydrocephalus. Calvarium is intact. IMPRESSION: No acute intracranial findings.
[2020-07-29 21:08] LABS: Eosinophils 2 % (0-10); Hemoglobin 12.3 g/dL (12.0-16.0); Lymphocytes 62 % (21-51); MDiff Complete? YES; Mean Corpuscular HGB CONC 31.5 g/dL (32.0-36.0); Mean Corpuscular Hemoglobin 28.3 pg (27.0-31.0); Mean Platelet Volume 7.5 fL (7.4-10.4); Monocytes 5 % (0-10); Neutrophil 31 % (42-75); Platelet Count 228 thou/uL (130-400); Platelet Morphology Comment Appears Adequate; RBC Distribution Width 13.6 % (11.5-14.5); Red Blood Cell (RBC) Count 4.35 mill/uL (4.20-5.40)
[2020-07-29 21:19] LABS: ALT (SGPT) 14 U/L (8-55); AST (SGOT) 17 U/L (5-34); Albumin 3.8 g/dL (3.5-5.0); Alkaline Phosphatase 101 U/L (40-110); Anion Gap 14 mmol/L (10-20); BUN (Urea Nitrogen) 14 mg/dL (9.8-20.1); Bilirubin, Total Less than 0.2 mg/dL (0.2-1.2); CK (CPK) 35 U/L (29-168); Calc. Creatinine Clearance 0 mL/min (70-130); Calcium 8.4 mg/dL (7.8-10.44); Carbon Dioxide 23 mmol/L (22-29); Chloride 109 mmol/L (98-107); Globulin 2.9 g/dL (2.4-3.5); Glucose 83 mg/dL (70-105); Potassium 4.2 mmol/L (3.5-5.1); Protein, Total 6.7 g/dL (6.0-8.3); Sodium 142 mmol/L (136-145)
[2020-07-29 23:28] LABS: SARS-CoV-2 NAA Rapid Test Not Detected (NotDetected)
[2020-07-30] MEDS ORDERED: Lorazepam 2 MG/ML VIAL ONE (00:44)
--- NOTE | 2020-08-06 14:52 | EKG ---
Test Reason : SEIZURE Blood Pressure : / mmHG Vent. Rate : 071 BPM Atrial Rate : 071 BPM P-R Int : 162 ms QRS Dur : 074 ms QT Int : 388 ms P-R-T Axes : 000 152 168 degrees QTc Int : 421 ms Suspect arm lead reversal, interpretation assumes no reversal Normal sinus rhythm Lateral infarct , age undetermined Inferior infarct , age undetermined Abnormal ECG Confirmed by ELMO JONAS DO ([id number]), scientific editor TIMOTHY BATEMAN ([id number]) on 08/06/2020 2:52:27 PM Referred By: Confirmed By:ELMO JONAS DO
== END 2020-07-30 01:13 | disposition short-term general hospital (02) ==
LOC: ERS 19:55
DX: R56.9 Unspecified convulsions (principal); J45.909 Unspecified asthma, uncomplicated; Z79.899 Other long term (current) drug therapy
CPT/HCPCS: 36415; 70450; 71045; 80053; 80177; 80185; 82550; 84484; 85025; 93005; 96374; 96376; J2060; U0002